=== PATIENT | male | born 1965 | race Caucasian/White ===

== ENCOUNTER 2017-05-20 22:09 | Emergency (ER) | payer MEDICAID, SELFPAY ==
[~2017-05-20] VITALS: Ht 177.8 cm; Wt 85.0 kg
[2017-05-20 22:15] VITALS: BP 127/79
[2017-05-20] MEDS ORDERED: ONDANSETRON 2MG/ML, 2ML ONE (22:25)
[2017-05-20] MEDS ORDERED: HYDROmorphone 1 MG/ML, 1ML ONE ×2 (22:25→23:10)
[2017-05-20] MEDS ORDERED: ONDANSETRON 2MG/ML, 2ML IVPush ONE (22:30)
[2017-05-20] MEDS: HYDROmorphone 1 MG/ML, 1ML IVPush PRN ×2 (22:36→23:14)
== END 2017-05-21 00:38 | disposition home or self-care (01) ==
LOC: ED 23:59
DX: S70.11XA Contusion of right thigh, initial encounter (principal); X58.XXXA Exposure to other specified factors, initial encounter; Y93.55 Activity, bike riding; Y92.488 Other paved roadways as the place of occurrence of the external cause; Y99.8 Other external cause status
CPT/HCPCS: 73552; 96374; 96375; 96376; 99284; J1170; J2405